=== PATIENT | female | born 1975 | race Caucasian/White ===

== ENCOUNTER 2024-11-14 10:05 | Emergency (ER) | payer OTHER, SELFPAY ==
--- NOTE | ~2024-11-14 | US_ITS ---
EXAMINATION: US PELVIS CLINICAL INFORMATION: Left pelvic pain and mass. COMPARISON: None available. TECHNIQUE: Ultrasound of the pelvis is performed using both transabdominal and transvaginal transducers along with Doppler. Transvaginal imaging is performed due to inadequate visualization transabdominally. FINDINGS: Uterus: The uterus is anteverted and measures 7.3 x 3.2 x 4.2 cm. The cervix is normal with small nabothian cysts. The double wall endometrial thickness is 4 mm. IUD is in place in good position within the endometrial stripe. The uterus is smooth in contour and has normal myometrial echogenicity. No visible fibroid. Adnexa: Both ovaries are visualized. There is normal color flow to the adnexa. There is no ovarian torsion. There is no pelvic ascites or fluid collection. There are no adnexal masses. Right ovary measures 3.0 x 2.2 x 1.8 cm. Volume = 6.2 mL. Normal sonographic appearance with normal follicles. Left ovary measures 1.7 x 1.4 x 0.9 cm. Volume = 1.1 mL. Normal sonographic appearance with normal follicles. US/US pelvic and transvaginal IMPRESSION: 1. IUD in good position. There is no endometrial thickening. 2. Normal uterus and myometrium. 3. Normal ovaries bilaterally. There are no adnexal masses. Electronically signed by: Gordo Pierce MD 11/14/2024 12:14 PM EDT
--- NOTE | ~2024-11-14 | CT_ITS ---
EXAMINATION: CT ABDOMEN PELVIS WITH IV CONTRAST HISTORY: LLQ tenderness R/O diverticulitis COMPARISON: There are no prior studies for available comparison. TECHNIQUE: CT scan of the abdomen and pelvis was performed following administration of 85 mL Omnipaque 350 using standard departmental protocol. Coronal and sagittal reformatted images were generated and reviewed. Oral contrast material was not administered at the request of the referring physician. This CT exam was performed with one or more of the following dose reduction techniques: automated exposure control, adjustment of the mA and/or kV according to patient size, use of iterative reconstruction technique. DLP: 593 mGy-cm FINDINGS: LOWER CHEST: There is minimal dependent atelectasis at the lung bases.. There is no pleural effusion. CARDIOVASCULATURE: The heart is normal in size. There is no pericardial effusion. LIVER: The liver is normal in size and contour. No liver mass is identified. The hepatic and portal veins are patent. GALLBLADDER / BILE DUCTS: The gallbladder is unremarkable. There is no intra or extrahepatic biliary ductal dilatation. SPLEEN: The spleen is normal in size. No focal splenic lesion is identified. PANCREAS: The pancreas is unremarkable in appearance. ADRENAL GLANDS: Within normal limits. KIDNEYS/RETROPERITONEUM: There is a 2 mm nonobstructing calculus at the upper pole of the right kidney.. There is no hydronephrosis. No renal masses are identified. LYMPH NODES: No abdominal or pelvic lymphadenopathy. VASCULATURE: The abdominal aorta is normal in caliber. MESENTERY/PERITONEUM: No free fluid. No masses. There is no free intraperitoneal gas. STOMACH: The stomach is collapsed, limiting evaluation. SMALL BOWEL: The small bowel is normal in caliber. COLON: There is diverticulosis of the descending colon. There is focal wall thickening and moderate pericolonic inflammatory stranding about a diverticulum in the mid to distal descending colon, consistent with diverticulitis. There is no associated extraluminal gas or loculated fluid collection. APPENDIX: Normal. URINARY BLADDER/PELVIC ORGANS: The urinary bladder is unremarkable. IUD is noted in the endometrial cavity of the uterus. BONES / SOFT TISSUES: No suspicious bony or soft tissue abnormalities. CT/CT abdomen pelvis w IV con IMPRESSION: Diverticulitis of the mid descending colon as described. Electronically signed by: Alpesh Klein MD 11/14/2024 01:27 PM EDT RP
[2024-11-14 10:08] VITALS: BP 126/74; PULSE 80; RESP 16; TEMP 36.6; O2SAT 96; BMI 26.6
--- NOTE | 2024-11-14 10:09 | ED_ITS ---
HPI - General Adult General Chief complaint: Abdominal Pain Stated complaint: L Side Pain Sent by [facility] Time Seen by Provider: 11/14/24 10:20 Source: patient and other (Expect note from [employer] MA[employer]GER Holley Chavez at prior to urgent care) Mode of arrival: ambulatory Limitations: no limitations History of Present Illness ED Provider: Dr. Abhi Thompson HPI narrative: 49-year-old female (TAB)- (18 years prior), IUD, hypertension who was referred to the emergency department from an urgent care clinic for evaluation of left lower quadrant pain/tenderness and a positive test. The patient states that she has had an IUD in for 18 years and does not have menstrual periods. She states she gets occasional spotting and had spotting 2 weeks prior. Patient states that 2 days prior, she was flying home from a work trip in [place] when she developed gradual onset of left lower quadrant cramping like pain. She states the pain got progressively worse, is intermittent and ranges from 7 to 8/10. Currently her pain is 3/10. The pain is worse with movement and eating. She denied fever or chills. She had nausea but no vomiting. She felt constipated and took a laxative with no relief for pain. At the urgent care, she had a pelvic exam which revealed cervical motion tenderness and left lower adnexal tenderness with possible mass. She had a positive urine tests and was referred to the emergency department for evaluation. She denied fever, chills, frequency, dysuria, bloody stools, black stools. Related Data Previous Rx's ?Medication ?Instructions ?Recorded levofloxacin 500 mg tablet 500 mg PO DAILY 7 days #7 t abs 11/14/24 metronidazole 500 mg tablet 500 mg PO TID 7 days #21 t abs 11/14/24 Allergies Allergy/AdvReac Type Severity Reaction Status Date / Time Penicillins Allergy Severe Anaphylaxis Verified 11/14/24 10:11 Review of Systems 2 Review of Systems: Yes all other systems are reviewed and are negative [facility] Social History Social History Smoked in Last 30 Days: No Use of substances other than those prescribed or required for medical reasons: No Advance Directives: No Advance Directives Information Provided: No Physical Exam ED Vital Signs: Vital Signs - 24 hr 11/14/24 10:08 11/14/24 12:58 Temperature 97.9 F 97.5 F Pulse Rate 80 72 Respiratory Rate 16 16 Blood Pressure 126/74 116/77 Pulse Oximetry 96 99 Oxygen Delivery Method Room Air Room Air BMI result Body Mass Index 26.6 Vital signs were normal Exam: General: Awake, alert in no distress Head: Normocephalic, atraumatic EENT: PERRL, sclera and conjunctiva are normal, mouth with no erythema or exudates Neck: Supple, no adenopathy Lung: breath sounds symmetric, no wheezing, no rales and no rhonchi Chest: symmetric movement, nontender Heart: regular rate and rhythm, normal S1, S2 no murmurs or rubs Abdomen: soft, moderate left lower quadrant tenderness with no rebound, no voluntary or involuntary guarding Back: no vertebral tenderness, no CVAT Neuro: Awake, alert, oriented, normal speech Psych: Pleasant, cooperative Course Course Course Narrative: RME, this is a rapid medical exam performed by Raul Aguayo please refer to primary provider for complete H&P- 49 year old female presents for evaluation of LLQ abdominal pain over the last 2 days. She went to urgent care prior to arrival, had a pelvic examination and had a palpable left lower abdominal mass on exam. She also had a positive test but reports being on the Mirena. Plan for labs urinalysis in her ultrasound of the pelvis. Medications Administered Discontinued Medications Generic Name Dose Route Start Last Admin Trade Name Freq PRN Reason Stop Dose Admin Sodium Chloride 1,000 mls @ 999 mls/hr 11/14/24 12:21 11/14/24 12:39 Ns IV 11/14/24 13:21 999 mls/hr .Q1H1M STA Administration Iohexol 100 ml 11/14/24 13:20 11/14/24 13:20 Iohexol 350 Mg/Ml 100 Ml Infus..Btl IV 11/14/24 13:21 85 ml ONCE ONE Administration Ketorolac Tromethamine 15 mg 11/14/24 12:36 11/14/24 12:43 Ketorolac Tromethamine 15 Mg/Ml Vial IVPUSH 11/14/24 12:37 15 mg ONCE STA Administration Medical Decision Making Medical Decision Making MDM Narrative: 49-year-old female (TAB)- (18 years prior), IUD, hypertension who was referred to the emergency department from an urgent care clinic for evaluation of left lower quadrant pain/tenderness and a positive test. The patient states that she has had an IUD in for 18 years and does not have menstrual periods. She states she gets occasional spotting and had spotting 2 weeks prior. Patient states that 2 days prior, she was flying home from a work trip in [place] when she developed gradual onset of left lower quadrant cramping like pain. She states the pain got progressively worse, is intermittent and ranges from 7 to 8/10. Currently her pain is 3/10. The pain is worse with movement and eating. She denied fever or chills. She had nausea but no vomiting. She felt constipated and took a laxative with no relief for pain. At the urgent care, she had a pelvic exam which revealed cervical motion tenderness and left lower adnexal tenderness with possible mass. She had a positive urine tests and was referred to the emergency department for evaluation. Vital signs were normal. Exam did reveal left lower quadrant tenderness with no rebound. Differential diagnosis: ?Includes but is not limited to ectopic , tubal ovarian mass/abscess, diverticulitis, pancreatitis, anemia, electrolyte abnormalities Course: 14:48 My independent interpretation patient's laboratory evaluation is as follows: WBC elevated 14,200. Glucose elevated 126. AST and ALT elevated 41 and 45. Quantitative beta-hCG was negative. The patient was given Toradol 15 mg IV with improvement of her pain. Pelvic ultrasound revealed no acute abnormalities therefore I ordered a CT scan of the abdomen pelvis to evaluate the patient for possible diverticulitis. CT scan showed acute diverticulitis of the mid descending colon. This explains the patient's symptoms and I did discuss this with her. At this time I do not think that the patient needs IV antibiotics seen be treated with oral antibiotics. She was given Levaquin 500 mg orally and metronidazole 500 mg orally. She was given a prescription for Levaquin 500 mg once a day for 7 days and metronidazole 500 mg 3 times a day for 7 days. She was advised to take Tylenol and ibuprofen for pain. She was given printed and verbal instructions and discharged home. Patient's IUD was in a proper position. CT scan revealed 2 incidental right kidney stones and I did discuss this with the patient as well. Differential Diagnosis Differential Diagnoses: The differential diagnosis associated with the presentation includes (See above) Admission/Observation Consideration of admission/observation: Escalation of care including admission/observation considered (Yes) Lab Data 11/14/24 11:06 11/14/24 11:06 Labs: Lab Results 11/14/24 11/14/24 Range/Units 11:06 12:33 WBC 14.2 H (4.8-10.8) X10*3/uL RBC 4.30 (4.20-5.50) X10*6/uL Hgb 14.2 (12.0-16.0) g/dl Hct 40.2 (37.0-47.0) % MCV 93.5 (80.0-98.0) fL MCH 33.0 (27.0-33.0) pg MCHC 35.3 H (31.0-35.0) g/dl RDW 12.5 (11.0-16.0) % Plt Count 393 (160-400) X10*3/uL MPV 8.9 L (9.4-12.3) fL Immature Gran % (Auto) 0.6 H (0.0-0.4) % Neut % (Auto) 76.7 H (45-73) % Lymph % (Auto) 13.9 L (20-40) % Richardson % (Auto) 7.2 (2-11) % Eos % (Auto) 1.1 (0-4) % Baso % (Auto) 0.5 (0-2) % Lymph # (Auto) 2.0 (1.2-4.9) X10*3/uL Richardson # (Auto) 1.0 (0.1-1.2) X10*3/uL Eos # (Auto) 0.2 (0.0-0.4) X10*3/uL Baso # (Auto) 0.1 (0.0-0.2) X10*3/uL Abs Immat Gran (auto) 0.08 H (0.00-0.03) X10*3/uL Absolute Neuts (auto) 10.9 H (2.0-8.3) x10*3/uL Absolute Nucleated RBC 0.000 (0.0-0.012) X10*3/uL Nucleated RBC % (auto) 0.0 (0.0-0.2) /100WBC PT 10.9 (10.9-12.4) SEC INR 1.0 (0.9-1.1) APTT 29.0 (26.7-34.1) SEC Sodium 139 (135-145) mmol/L Potassium 4.3 (3.3-5.1) mmol/L Chloride 104 (96-108) mmol/L Carbon Dioxide 28 (22-29) mmol/L Anion Gap 11 L (12-20) BUN 14 (9-16) mg/dL Creatinine 0.86 (0.5-1.4) mg/dL Estim Creat Clear Calc 86.5 Estimated GFR > 60 Random Glucose 126 H (60-115) mg/dL Lactic Acid 0.6 (0.5-2.0) mmol/L Calcium 9.7 (8.4-10.2) mg/dL Total Bilirubin 1.1 H (0.0-1.0) mg/dL AST 41 H (5-31) U/L ALT 45 H (0-31) U/L Alkaline Phosphatase 78 (39-117) U/L Total Protein 7.7 (6.5-8.0) g/dL Albumin 4.4 (3.5-5.0) g/dL Lipase 31 (8-78) U/L Beta HCG, Quant < 2 mIU/mL Blood Type A Positive Antibody Screen NEGATIVE Radiology Impression Discussion of test interpretation with radiology: I have reviewed the radiologist's reading. Radiologist Impression: EXAMINATION: CT ABDOMEN PELVIS WITH IV CONTRAST ...COLON: There is diverticulosis of the descending colon. There is focal wall thickening and moderate pericolonic inflammatory stranding about a diverticulum in the mid to distal descending colon, consistent with diverticulitis. There is no associated extraluminal gas or loculated fluid collection. APPENDIX: Normal. URINARY BLADDER/PELVIC ORGANS: The urinary bladder is unremarkable. IUD is noted in the endometrial cavity of the uterus. BONES / SOFT TISSUES: No suspicious bony or soft tissue abnormalities. CT/CT abdomen pelvis w IV con IMPRESSION: Diverticulitis of the mid descending colon as described. Electronically signed by: Alpesh Klein MD 11/14/2024 01:27 PM EDT Chronic Conditions Patient?s care impacted by: Hypertension Discharge Plan Discharge Clinical Impression: Diverticulitis, Kidney stone on right side Patient Disposition: Home, Self-Care Additional Instructions: Your blood work revealed an elevated white blood cell count of 14, 200 Your liver tests revealed a slight elevation in your AST and ALT of 41 and 45 (normal is less than 31). This has not significant but you should discuss these values with your doctor and have them repeated in the near future to make sure that they are not increasing. Your blood (serum) test was negative. Your pelvic ultrasound did not reveal any abnormalities. The CT scan of your abdomen pelvis with IV contrast did reveal diverticulitis of your left side (descending) colon. Take levofloxacin (Levaquin) 500 mg pills, 1 pill once a day for 7 days. Take metronidazole (Flagyl) 500 mg pills, 1 pill 3 times a day for 7 days. Take ibuprofen 200 mg pills, 2 pills every 6 hours as needed for pain or fever. Take Tylenol (acetaminophen) 500 mg pills, 2 pills every 6 hours as needed for pain or fever. For the next 48 hours, stay on a KIT diet (bananas, rice, applesauce, tea and toast). Then slowly advance your diet to foods that you can tolerate. After 1 month I want you to increase the amount of fiber in your diet and increase the amount of fluid that you drink to help prevent constipation. You should call your box cutter and let them know that you were diagnosed with diverticulitis. Sometimes they may want to repeat a colonoscopy to further evaluate you depending on what your previous colonoscopy showed. Your CT scan also showed that you have stones in your right kidney and this may giving a right-sided kidney pain in the future but at this time there is nothing you need to do about these kidney stones. Follow-up with your doctor in 2 days. Please return to the emergency department if your symptoms get worse or if you develop any symptoms that are concerning to you. EXAMINATION: CT ABDOMEN PELVIS WITH IV CONTRAST HISTORY: LLQ tenderness R/O diverticulitis COMPARISON: There are no prior studies for available comparison. FINDINGS: LOWER CHEST: There is minimal dependent atelectasis at the lung bases.. There is no pleural effusion. CARDIOVASCULATURE: The heart is normal in size. There is no pericardial effusion. LIVER: The liver is normal in size and contour. No liver mass is identified. The hepatic and portal veins are patent. GALLBLADDER / BILE DUCTS: The gallbladder is unremarkable. There is no intra or extrahepatic biliary ductal dilatation. SPLEEN: The spleen is normal in size. No focal splenic lesion is identified. PANCREAS: The pancreas is unremarkable in appearance. ADRENAL GLANDS: Within normal limits. KIDNEYS/RETROPERITONEUM: There is a 2 mm nonobstructing calculus at the upper pole of the right kidney.. There is no hydronephrosis. No renal masses are identified. LYMPH NODES: No abdominal or pelvic lymphadenopathy. VASCULATURE: The abdominal aorta is normal in caliber. MESENTERY/PERITONEUM: No free fluid. No masses. There is no free intraperitoneal gas. STOMACH: The stomach is collapsed, limiting evaluation. SMALL BOWEL: The small bowel is normal in caliber. COLON: There is diverticulosis of the descending colon. There is focal wall thickening and moderate pericolonic inflammatory stranding about a diverticulum in the mid to distal descending colon, consistent with diverticulitis. There is no associated extraluminal gas or loculated fluid collection. APPENDIX: Normal. URINARY BLADDER/PELVIC ORGANS: The urinary bladder is unremarkable. IUD is noted in the endometrial cavity of the uterus. BONES / SOFT TISSUES: No suspicious bony or soft tissue abnormalities. CT/CT abdomen pelvis w IV con IMPRESSION: Diverticulitis of the mid descending colon as described. Electronically signed by: Alpesh Klein MD 11/14/2024 01:27 PM EDT Prescriptions: New levofloxacin 500 mg tablet 500 mg PO DAILY 7 Days Qty: 7 0RF metronidazole 500 mg tablet 500 mg PO TID 7 Days Qty: 21 0RF Print Language: Kazakh
[2024-11-14 11:13] LABS: MANUAL DIFF FLAG NO
[2024-11-14 11:14] LABS: Hematocrit 40.2 % (37.0-47.0); Hemoglobin 14.2 g/dl (12.0-16.0); Imm Gran Abs Auto 0.08 X10*3/uL (0.00-0.03); Imm Gran Pct Auto 0.6 % (0.0-0.4); Lymphocytes Absolute Auto 2.0 X10*3/uL (1.2-4.9); Mean Corpuscular HGB Conc 35.3 g/dl (31.0-35.0); Mean Corpuscular Hemoglobin 33.0 pg (27.0-33.0); Mean Corpuscular Volume 93.5 fL (80.0-98.0); NRBC Abs Auto 0.000 X10*3/uL (0.0-0.012); NRBC Pct Auto 0.0 /100WBC (0.0-0.2); Platelet Count 393 X10*3/uL (160-400); Red Blood Count 4.30 X10*6/uL (4.20-5.50); White Blood Count 14.2 X10*3/uL (4.8-10.8)
[2024-11-14 11:20] LABS: INTERNATIONAL NORM RATIO 1.0 (0.9-1.1); Prothrombin Time 10.9 SEC (10.9-12.4)
[2024-11-14 11:23] LABS: Partial Thromboplastin Time 29.0 SEC (26.7-34.1)
[2024-11-14 11:55] LABS: Alanine Aminotransferase 45 U/L (0-31); Albumin Level 4.4 g/dL (3.5-5.0); Alkaline Phosphatase 78 U/L (39-117); Anion Gap 11 (12-20); Aspartate Amino Transferase 41 U/L (5-31); Blood Urea Nitrogen 14 mg/dL (9-16); Calcium 9.7 mg/dL (8.4-10.2); Carbon Dioxide 28 mmol/L (22-29); Chloride 104 mmol/L (96-108); Creatinine Clr Calc Pharmacy 86.5; Estimated Glomerular Filt Rate > 60; Lipase 31 U/L (8-78); Potassium 4.3 mmol/L (3.3-5.1); Sodium 139 mmol/L (135-145); Total Protein 7.7 g/dL (6.5-8.0)
--- NOTE | 2024-11-14 12:25 | PC.NURSE ---
Discussed w/ Dr. Bell regarding elevated wbc and poss sepsis alert, provider stated not at this time, will await u/s results
[2024-11-14 12:58] VITALS: BP 116/77; PULSE 72; RESP 16; TEMP 36.4; O2SAT 99
[2024-11-14] MEDS: iohexoL 350 MG/ML 100 ML INFUS..BTL IV (13:20)
[2024-11-14 14:56] VITALS: BP 116/77; PULSE 72; RESP 16; TEMP 36.4; O2SAT 99
== END 2024-11-14 14:56 | disposition home or self-care (01) ==
PROVIDERS: Physician Assistant; Emergency Provider Emergency Medicine Emergency Medical Services; PCP Internal Medicine
DX: K57.32 Diverticulitis of large intestine without perforation or abscess without bleeding (principal); R10.2 Pelvic and perineal pain; R11.0 Nausea; Z79.899 Other long term (current) drug therapy
CPT/HCPCS: 36415; 74177; 76830; 76856; 80053; 83605; 83690; 84702; 85025; 85610; 85730; 86850; 86900; 86901; 87040; 96361; 96374; 99284; 99285; J1885; Q9967

== ENCOUNTER → 2024-11-14 10:10 | Outpatient (BNV) | payer OTHER, SELFPAY | PROVIDERS: Emergency Provider Emergency Medicine Emergency Medical Services; PCP Internal Medicine; Visit Provider Radiology Diagnostic Radiology | DX: K57.32 Diverticulitis of large intestine without perforation or abscess without bleeding (principal); R10.32 Left lower quadrant pain; R19.04 Left lower quadrant abdominal swelling, mass and lump | CPT/HCPCS: 74177; 76830; 76856 ==